=== PATIENT | female | born 1960 | race Caucasian/White ===

== ENCOUNTER 2021-04-11 11:45 | Day surgery (SDC) | payer BC ==
[~2021-04-11] VITALS: Ht 172.7 cm; Wt 268.2 kg
[~2021-04-11 11:45] MED LIST: ARTHRITIS PAIN50 GM TOP; ASPI81CH PO; Aspir 8181 MG PO; B-COMPLEX WITH1 EAC2 PO; CALCA500CH PO; CALCIUM MAGNES1 EAC1 PO; CLOB.05TO; ERGO50000 PO; FERR325 PO; FERROUS SULFAT325 M3 PO; FLONASE ALLERG9.9 M2; HYDSUL200 PO; LISI20 PO; MELO7.5 PO; METAMUCIL POWD575 GM; METF500 PO; NYSTRIT; PSYL5.85P PO; VITAMIN D31000 UNI1 PO; ZESTRIL40 M2 PO
== END 2021-04-11 13:59 | disposition home or self-care (01) ==
LOC: ORSCSDS 11:45
PROVIDERS: Internal Medicine Gastroenterology
PROC: 0DBN8ZX Excision of Sigmoid Colon, Via Natural or Artificial Opening Endoscopic, Diagnostic (ICD-10-PCS; principal; 2021-04-11 13:00)
DX: Z12.11 Encounter for screening for malignant neoplasm of colon (principal); Z86.010 Personal history of colon polyps; Z80.0 Family history of malignant neoplasm of digestive organs; D12.5 Benign neoplasm of sigmoid colon; I10 Essential (primary) hypertension; E11.9 Type 2 diabetes mellitus without complications; E66.9 Obesity, unspecified; Z68.41 Body mass index [BMI] 40.0-44.9, adult; G47.33 Obstructive sleep apnea (adult) (pediatric); Z79.82 Long term (current) use of aspirin; Z79.899 Other long term (current) drug therapy
CPT/HCPCS: 88305; J2704; J7120